=== PATIENT | male | born 1985 | race Caucasian/White ===

== ENCOUNTER 2017-12-11 18:38 | Emergency (ER) | payer MEDICAID ==
[~2017-12-11] VITALS: Ht 180.3 cm; Wt 68.2 kg
[~2017-12-11 18:38] MED LIST: ALBU18HF2 INH; CEPH-571 PO; HYDR-4383 PO; NAPR-1154 PO; NO HOME MEDS; ONDA8TAB6 PO; PSEU-259 PO
[2017-12-11] MEDS ORDERED: ondansetron/PF 4mg/2ml inj IV ONE (19:00)
[2017-12-11] MEDS ORDERED: famotidine/PF 10 mg/ml inj IV ONE (19:00)
[2017-12-11] MEDS ORDERED: normal saline 1000ML IV soln IVB ONE (19:00)
[2017-12-11 19:19] LABS: BASOPHILS % (AUTO) 0.4 % (0-1); EOSINOPHILS # (AUTO) 0.2 X10'3 (0-0.9); EOSINOPHILS % (AUTO) 1.3 % (0-6); HEMATOCRIT 42.3 % (42.0-52.0); HEMOGLOBIN 14.1 g/dl (14.0-17.9); LYMPHOCYTES # (AUTO) 0.9 X10'3 (1.1-4.8); LYMPHOCYTES % (AUTO) 7.8 % (21-51); MEAN CORPUSCULAR HEMOGLOBIN 28.8 PG (27.0-31.0); MEAN CORPUSCULAR HGB CONC 33.4 % (33.0-36.5); MEAN CORPUSCULAR VOLUME 86.3 FL (78-98); MEAN PLATELET VOLUME 8.6 FL (7.4-10.4); MONOCYTES # (AUTO) 0.2 X10'3 (0-0.9); MONOCYTES % (AUTO) 1.9 % (2-12); NEUTROPHILS # (AUTO) 10.2 X10'3 (1.8-7.7); NEUTROPHILS % (AUTO) 88.6 % (42-75); PLATELET COUNT 237 X10'3 (140-440); RED CELL DISTRIBUTION WIDTH 13.8 % (11.5-14.5); WHITE BLOOD COUNT 11.5 X10'3 (4.5-11.0)
[2017-12-11 19:38] LABS: ALANINE AMINOTRANSFERASE 12 U/L (12-78); ALBUMIN 4.2 G/DL (3.4-5.0); ALBUMIN/GLOBULIN RATIO 1.2 (1.1-1.5); ALKALINE PHOSPHATASE 99 IU/L (46-116); ANION GAP 12 (8-16); ASPARTATE AMINO TRANSFERASE 12 U/L (10-37); BILIRUBIN,TOTAL 0.4 MG/DL (0.1-1.0); BLOOD UREA NITROGEN 8 MG/DL (7-18); BUN/CREATININE RATIO 8.4 (5.4-32.0); CALCIUM 9.3 MG/DL (8.5-10.1); CHLORIDE 103 MMOL/L (99-107); CREATININE 0.95 MG/DL (0.60-1.10); GLUCOSE 139 MG/DL (70-104); POTASSIUM 3.5 MMOL/L (3.5-5.1); SODIUM 139 MMOL/L (135-145); TOTAL CARBON DIOXIDE 23.9 MMOL/L (24-32); TOTAL PROTEIN 7.8 G/DL (6.4-8.2); eGFR > 90 ML/MIN
[2017-12-11] MEDS ORDERED: ONDA4TAB9 SL (19:46)
[2017-12-11] MEDS ORDERED: FAMO40TA73 PO (19:46)
[2017-12-11] MEDS ORDERED: ketorolac trometh. 30mg/ml inj. IV ONE (19:55)
[2017-12-11 20:16] VITALS: BP 136/75
== END 2017-12-11 20:18 | disposition home or self-care (01) ==
LOC: ER 18:38
DX: K52.9 Noninfective gastroenteritis and colitis, unspecified (principal); G89.29 Other chronic pain; F11.10 Opioid abuse, uncomplicated
CPT/HCPCS: 36415; 80053; 85025; 96361; 96374; 96375; 99284; J1885; J2405; J3490

== ENCOUNTER 2017-12-13 04:23 | Emergency (ER) | payer MEDICAID ==
[~2017-12-13] VITALS: Ht 177.8 cm; Wt 68.1 kg
[~2017-12-13 04:23] MED LIST changes: +FAMO40TA73 PO; +ONDA4TAB9 SL
[2017-12-13] MEDS ORDERED: proCHLORperazine 10 MG/2 ml inj IV ONE (04:30)
[2017-12-13] MEDS ORDERED: LORazepam 2 mg/ml vial IV ONE (04:30)
[2017-12-13] MEDS ORDERED: diphenhydrAMINE 50 mg/ml inj IV ONE (04:30)
[2017-12-13] MEDS ORDERED: normal saline 1000ML IV soln IVB ONE (04:30)
[2017-12-13] MEDS ORDERED: ONDA8TAB9 PO (05:07)
[2017-12-13 05:13] VITALS: BP 118/62
== END 2017-12-13 06:02 | disposition home or self-care (01) ==
LOC: ER 04:23
DX: G43.A0 Cyclical vomiting, in migraine, not intractable (principal); G89.29 Other chronic pain; F11.90 Opioid use, unspecified, uncomplicated; Z79.899 Other long term (current) drug therapy
CPT/HCPCS: 96361; 96374; 96375; 99284; J0780; J1200; J2060; J7030

== ENCOUNTER 2018-02-08 07:01 | Emergency (ER) | payer MEDICAID ==
[~2018-02-08] VITALS: Ht 182.9 cm; Wt 72.7 kg
[~2018-02-08 07:01] MED LIST changes: -ONDA4TAB9 SL; +ONDA8TAB9 PO
[2018-02-08] MEDS ORDERED: ondansetron/PF 4mg/2ml inj IV ONE (07:15)
[2018-02-08] MEDS ORDERED: diphenhydrAMINE 50 mg/ml inj IV ONE (07:15)
[2018-02-08] MEDS ORDERED: haloperidol lactate 5mg/ml inj IM ONE (07:15)
[2018-02-08] MEDS ORDERED: normal saline 1000ML IV soln IVB ONE (07:15)
[2018-02-08 07:40] LABS: BASOPHILS % (AUTO) 0.2 % (0-1); EOSINOPHILS # (AUTO) 0.1 X10'3 (0-0.9); EOSINOPHILS % (AUTO) 0.9 % (0-6); HEMATOCRIT 40.9 % (42.0-52.0); HEMOGLOBIN 13.8 g/dl (14.0-17.9); LYMPHOCYTES # (AUTO) 1.4 X10'3 (1.1-4.8); MEAN CORPUSCULAR HEMOGLOBIN 28.6 PG (27.0-31.0); MEAN CORPUSCULAR HGB CONC 33.7 % (33.0-36.5); MEAN CORPUSCULAR VOLUME 84.9 FL (78-98); MEAN PLATELET VOLUME 8.7 FL (7.4-10.4); MONOCYTES # (AUTO) 0.6 X10'3 (0-0.9); MONOCYTES % (AUTO) 5.4 % (2-12); NEUTROPHILS # (AUTO) 9.4 X10'3 (1.8-7.7); NEUTROPHILS % (AUTO) 81.5 % (42-75); PLATELET COUNT 155 X10'3 (140-440); RED BLOOD COUNT 4.81 X10'6 (4.70-6.10); WHITE BLOOD COUNT 11.6 X10'3 (4.5-11.0)
[2018-02-08 07:54] LABS: ALANINE AMINOTRANSFERASE 15 U/L (12-78); ALBUMIN 4.1 G/DL (3.4-5.0); ALBUMIN/GLOBULIN RATIO 1.2 (1.1-1.5); ALKALINE PHOSPHATASE 67 IU/L (46-116); ANION GAP 11 (8-16); ASPARTATE AMINO TRANSFERASE 16 U/L (10-37); BILIRUBIN,TOTAL 0.5 MG/DL (0.1-1.0); BLOOD UREA NITROGEN 8 MG/DL (7-18); BUN/CREATININE RATIO 9.4 (5.4-32.0); CALCIUM 8.9 MG/DL (8.5-10.1); CHLORIDE 101 MMOL/L (99-107); CREATININE 0.85 MG/DL (0.60-1.10); GLUCOSE 129 MG/DL (70-104); LIPASE 61 U/L (73-393); SODIUM 137 MMOL/L (135-145); TOTAL CARBON DIOXIDE 25.1 MMOL/L (24-32); TOTAL PROTEIN 7.5 G/DL (6.4-8.2); eGFR > 90 ML/MIN
[2018-02-08 08:00] LABS: POTASSIUM 2.7 MMOL/L (3.5-5.1)
[2018-02-08] MEDS ORDERED: potassium Cl 10 mEq/100mL bag IV ONE (08:05)
[2018-02-08] MEDS ORDERED: potassium Cl 20 mEq SR tablet PO ONE (08:05)
[2018-02-08] MEDS ORDERED: potassium 10mEq/100ml NS w/LIDOcaine (10mg/bag) IV ONE (08:05)
[2018-02-08 08:11] LABS: PLATELET ESTIMATE NORMAL; TOTAL CELLS COUNTED 100
[2018-02-08 10:02] VITALS: BP 119/59
== END 2018-02-08 10:06 | disposition home or self-care (01) ==
LOC: ER 07:02
DX: E86.0 Dehydration (principal); R11.2 Nausea with vomiting, unspecified; E87.6 Hypokalemia; G89.29 Other chronic pain; F12.90 Cannabis use, unspecified, uncomplicated; F11.90 Opioid use, unspecified, uncomplicated; Z79.2 Long term (current) use of antibiotics; Z79.899 Other long term (current) drug therapy
CPT/HCPCS: 36415; 80053; 83690; 85025; 96361; 96365; 96372; 96375; 99283; J1200; J1630; J2405; J3480; J7030

== ENCOUNTER 2022-09-19 09:23 | Outpatient (CLI) | payer MEDICAID | END 2022-09-19 23:59 | disposition home or self-care (01) | LOC: RAD 09:23 | PROVIDERS: ATTEND General Practice | DX: I51.7 Cardiomegaly (principal); F11.20 Opioid dependence, uncomplicated | CPT/HCPCS: 93005 ==

== ENCOUNTER 2023-04-14 21:05 | Emergency (ER) | payer MEDICAID, OTHER ==
[~2023-04-14] VITALS: Ht 182.9 cm; Wt 72.7 kg
[2023-04-14 22:03] LABS: BASOPHILS % (AUTO) 0.3 % (0-1); EOSINOPHILS % (AUTO) 0.1 % (0-6); HEMATOCRIT 39.9 % (42.0-52.0); HEMOGLOBIN 13.3 g/dl (14.0-17.9); LYMPHOCYTES # (AUTO) 1.1 X10'3 (1.1-4.8); LYMPHOCYTES % (AUTO) 12.2 % (21-51); MEAN CORPUSCULAR HGB CONC 33.4 g/dL (33.0-36.5); MEAN CORPUSCULAR VOLUME 84.1 FL (78-98); MEAN PLATELET VOLUME 7.8 FL (7.4-10.4); MONOCYTES # (AUTO) 0.6 X10'3 (0-0.9); MONOCYTES % (AUTO) 6.7 % (2-12); NEUTROPHILS % (AUTO) 80.7 % (42-75); PLATELET COUNT 293 X10'3 (140-440); RED BLOOD COUNT 4.75 X10'6 (4.70-6.10); RED CELL DISTRIBUTION WIDTH 13.7 % (11.5-14.5); WHITE BLOOD COUNT 8.7 X10'3 (4.5-11.0)
[2023-04-14] MEDS: ondansetron/PF 4mg/2ml inj IV ONE (22:24)
[2023-04-14] MEDS: normal saline 1000ml 1,000 ML IV ONE (22:30)
[2023-04-14 22:33] LABS: ALANINE AMINOTRANSFERASE 17 U/L (12-78); ALBUMIN 3.8 G/DL (3.4-5.0); ALKALINE PHOSPHATASE 92 IU/L (46-116); ANION GAP 8 (8-16); ASPARTATE AMINO TRANSFERASE 15 U/L (10-37); BILIRUBIN,TOTAL 0.6 MG/DL (0.1-1.0); BLOOD UREA NITROGEN 7 MG/DL (7-18); BUN/CREATININE RATIO 10.8 (10.0-20.0); CALCIUM 8.8 MG/DL (8.5-10.1); CHLORIDE 103 MMOL/L (99-107); CREATININE 0.65 MG/DL (0.60-1.10); GLUCOSE 108 MG/DL (70-104); POTASSIUM 3.8 MMOL/L (3.5-5.1); SODIUM 138 MMOL/L (135-145); TOTAL PROTEIN 7.7 G/DL (6.4-8.2); eCRCL 163 ML/MIN; eGFR > 90 ML/MIN
[2023-04-14 22:37] LABS: PRO BRAIN NATRIURETIC PEPTIDE 56 PG/ML (0-125)
[2023-04-15 00:02] VITALS: BP 120/60; PULSE 78; RESP 16; TEMP 98; O2SAT 98
== END 2023-04-14 23:55 ==
LOC: ER 21:06 → EEVIPCON 21:06 → ER 23:55
DX: R07.9 Chest pain, unspecified (principal); F19.10 Other psychoactive substance abuse, uncomplicated; G89.29 Other chronic pain; F12.10 Cannabis abuse, uncomplicated; F11.10 Opioid abuse, uncomplicated; Z79.899 Other long term (current) drug therapy
CPT/HCPCS: 36415; 71045; 80053; 83880; 84484; 85025; 93005; 96374; 99285; J2405; J7030